=== PATIENT | female | born 1995 | race Caucasian/White ===

== ENCOUNTER 2018-08-10 20:21 | Emergency (ER) | payer BC ==
[~2018-08-10] VITALS: Ht 162.6 cm; Wt 90.7 kg
[~2018-08-10 20:21] MED LIST: DEPO-SUBQ104 MG/0.6 SUB-Q
--- NOTE | 2018-08-10 23:20 | EKG ---
[facility] [address] [facility] [place], [place] [address] Signed Normal sinus rhythm Normal ECG No previous ECGs available Confirmed by DONI JAIMES DO ([id number]) on 08/10/2018 11:20:39 PM Electronically Signed By: DONI JAIMES DO 08/10/18 2320 PATIENT NAME: YOBANY GARCIA Electrocardiogram DATE OF : [birth year] PHYSICIAN: DONI JAIMES DO REPORT #: [id number] REPORT IS CONFIDENTIAL AND NOT TO BE RELEASED WITHOUT AUTHORIZATION
== END 2018-08-10 22:55 | disposition home or self-care (01) ==
LOC: ED 20:21
DX: E87.5 Hyperkalemia (principal); R25.3 Fasciculation; Z88.0 Allergy status to penicillin
CPT/HCPCS: 70450; 80053; 81001; 83735; 84443; 85025; 93005; 93010; 99285-25; J7030